=== PATIENT | male | born 1950 | race Caucasian/White ===

== ENCOUNTER 2023-12-19 14:48 | Inpatient (IN) | payer MEDICARE, OTHER ==
[~2023-12-19] VITALS: Ht 175.3 cm; Wt 72.4 kg
[~2023-12-19 14:48] MED LIST: AMLO2.5T2 PO; ASPI-1265 PO; ATOR20TA66 PO; DOCU-148 PO; LOSA-415 PO; NITR0.4T51 SL; PANT40TA54 PO
[2023-12-19 15:37] LABS: BASOPHILS # (AUTO) 0.1 X10'3 (0-0.2); EOSINOPHILS # (AUTO) 0.6 X10'3 (0-0.9); EOSINOPHILS % (AUTO) 9.7 % (0-6); HEMATOCRIT 38.3 % (42.0-52.0); HEMOGLOBIN 13.7 g/dl (14.0-17.9); LYMPHOCYTES % (AUTO) 17.5 % (21-51); MEAN CORPUSCULAR HEMOGLOBIN 33.2 PG (27.0-31.0); MEAN CORPUSCULAR HGB CONC 35.7 g/dL (33.0-36.5); MEAN CORPUSCULAR VOLUME 92.9 FL (78-98); MEAN PLATELET VOLUME 8.9 FL (7.4-10.4); MONOCYTES # (AUTO) 0.6 X10'3 (0-0.9); MONOCYTES % (AUTO) 9.8 % (2-12); NEUTROPHILS # (AUTO) 3.7 X10'3 (1.8-7.7); PLATELET COUNT 251 X10'3 (140-440); RED BLOOD COUNT 4.12 X10'6 (4.70-6.10); RED CELL DISTRIBUTION WIDTH 14.4 % (11.5-14.5); WHITE BLOOD COUNT 5.9 X10'3 (4.5-11.0)
[2023-12-19 15:53] LABS: ALBUMIN 3.3 G/DL (3.4-5.0); ANION GAP 9 (8-16); BLOOD UREA NITROGEN 20 MG/DL (7-18); BUN/CREATININE RATIO 15.4 (10.0-20.0); CHLORIDE 108 MMOL/L (99-107); GLUCOSE 140 MG/DL (70-104); POTASSIUM 3.5 MMOL/L (3.5-5.1); PRO BRAIN NATRIURETIC PEPTIDE 148 PG/ML (0-125); SODIUM 145 MMOL/L (135-145); TOTAL CARBON DIOXIDE 27.6 MMOL/L (24-32); eCRCL 51 ML/MIN; eGFR 54 ML/MIN
[2023-12-19 18:47] LABS: MAGNESIUM 2.2 MG/DL (1.5-2.4)
[2023-12-19] MEDS: normal saline 1000ML IV soln IVB ONE ×2 (19:06→21:30)
[2023-12-19] MEDS: ondansetron/PF 4mg/2ml inj IV ONE (19:07)
[2023-12-19] MEDS: morphine 4 MG/ML inj SYRINge IV ONE (19:07)
[2023-12-19] MEDS: LIDOcaine 2% Viscous 15ml cup MM ONE (19:13)
[2023-12-19] MEDS: mag hydrox/Alum hydrox/simeth 30ml oral suspension PO ONE (19:13)
[2023-12-19] MEDS: metroNIDAZOLE-Flagyl 500mg/NS 100 ML IV ONE (22:05)
[2023-12-19] MEDS ORDERED: magnesium 2GM in 50ml NS 50 ML IV PRN (22:10)
[2023-12-19] MEDS ORDERED: magnesium Cl slow-release 64mg tablet PO PRN (22:10)
[2023-12-19] MEDS ORDERED: morphine 2 MG/ML inj. syringe IV PRN (22:10)
[2023-12-19] MEDS ORDERED: potassium Cl 40MEQ/1/2NS 520ml 520 ML IV PRN (22:10)
[2023-12-19] MEDS ORDERED: acetaminophen 325mg tablet PO PRN (22:10)
[2023-12-19] MEDS ORDERED: mag hydrox/Alum hydrox/simeth 30ml oral suspension PO PRN (22:10)
[2023-12-19] MEDS ORDERED: magnesium hydroxide 30ml (MOM) UD suspension PO PRN (22:10)
[2023-12-19] MEDS ORDERED: magnesium 4gm in 100ml NS 100 ML IV PRN (22:10)
[2023-12-19] MEDS ORDERED: potassium Cl 20 mEq SR tablet PO PRN ×2 (22:10)
[2023-12-19] MEDS ORDERED: LOSA100T58 PO (22:46)
[2023-12-19] MEDS ORDERED: DOCU-225 PO (22:50)
[2023-12-19] MEDS ORDERED: ATOR20TA66 PO (22:50)
[2023-12-19] MEDS ORDERED: ASPI-611 PO (22:50)
[2023-12-19] MEDS ORDERED: NITR0.4T51 SL (22:50)
[2023-12-19] MEDS: normal saline 1000ml 1,000 ML IV SCH (23:33)
[2023-12-19] MEDS: levoFLOXACIN-Levaquin 500mg/D5 100 ML IV ONE (23:33)
[2023-12-20] VITALS (30 sets, daily range): BP systolic 113–145; BP diastolic 52–96; PULSE 57–89; RESP 10–21; TEMP 97–98.3; O2SAT 96–100
[2023-12-20] MEDS ORDERED: nitroGLYCERIN 0.4mg SUBLingual tab SL PRN (01:20)
[2023-12-20 06:03] LABS: BASOPHILS # (AUTO) 0.1 X10'3 (0-0.2); BASOPHILS % (AUTO) 0.9 % (0-1); EOSINOPHILS # (AUTO) 0.6 X10'3 (0-0.9); EOSINOPHILS % (AUTO) 10.3 % (0-6); HEMATOCRIT 37.1 % (42.0-52.0); HEMOGLOBIN 13.1 g/dl (14.0-17.9); LYMPHOCYTES # (AUTO) 1.3 X10'3 (1.1-4.8); LYMPHOCYTES % (AUTO) 23.1 % (21-51); MEAN CORPUSCULAR HEMOGLOBIN 32.9 PG (27.0-31.0); MEAN CORPUSCULAR HGB CONC 35.4 g/dL (33.0-36.5); MEAN CORPUSCULAR VOLUME 92.9 FL (78-98); MEAN PLATELET VOLUME 9.2 FL (7.4-10.4); MONOCYTES # (AUTO) 0.7 X10'3 (0-0.9); MONOCYTES % (AUTO) 11.4 % (2-12); NEUTROPHILS # (AUTO) 3.2 X10'3 (1.8-7.7); NEUTROPHILS % (AUTO) 54.3 % (42-75); PLATELET COUNT 212 X10'3 (140-440); RED BLOOD COUNT 3.99 X10'6 (4.70-6.10); RED CELL DISTRIBUTION WIDTH 14.1 % (11.5-14.5); WHITE BLOOD COUNT 5.8 X10'3 (4.5-11.0)
[2023-12-20 06:11] LABS: APTT 28 SECONDS (22-32); PROTHROMBIN TIME 10.8 SECONDS (9.0-12.0)
[2023-12-20 06:14] LABS: ALANINE AMINOTRANSFERASE 21 U/L (12-78); ALBUMIN 2.8 G/DL (3.4-5.0); ALBUMIN/GLOBULIN RATIO 0.8 (1.1-1.5); ALKALINE PHOSPHATASE 98 IU/L (46-116); ANION GAP 9 (8-16); ASPARTATE AMINO TRANSFERASE 15 U/L (10-37); BILIRUBIN,TOTAL 0.5 MG/DL (0.1-1.0); BLOOD UREA NITROGEN 13 MG/DL (7-18); BUN/CREATININE RATIO 13.7 (10.0-20.0); CALCIUM 8.1 MG/DL (8.5-10.1); CHLORIDE 109 MMOL/L (99-107); CREATININE 0.95 MG/DL (0.60-1.10); GLUCOSE 102 MG/DL (70-104); MAGNESIUM 1.6 MG/DL (1.5-2.4); PHOSPHORUS 3.5 MG/DL (2.3-4.5); POTASSIUM 3.5 MMOL/L (3.5-5.1); SODIUM 147 MMOL/L (135-145); TOTAL CARBON DIOXIDE 28.6 MMOL/L (24-32); TOTAL PROTEIN 6.2 G/DL (6.4-8.2); eCRCL 68 ML/MIN; eGFR 77 ML/MIN
[2023-12-20] MEDS: pantoprazole 40mg Tablet.DR PO SCH (07:52)
[2023-12-20] MEDS: docusate sod 100mg capsule PO SCH (07:52)
[2023-12-20] MEDS: losartan 50mg tablet PO SCH (07:57)
[2023-12-20] MEDS: atorvastatin 20mg tablet PO SCH (08:00)
[2023-12-20] MEDS: amLODIPine 5mg tablet PO SCH (08:00)
[2023-12-20] MEDS: K and/or MAG REPLACEMENT MC SCH (08:00)
[2023-12-20] MEDS: aspirin 81mg, enteric-coated 1 TAB TABLET.DR PO SCH (08:00)
[2023-12-20] MEDS: metroNIDAZOLE-Flagyl 500mg/NS 100 ML IV SCH (08:18)
[2023-12-20] MEDS: ondansetron/PF 4mg/2ml inj IV PRN (10:34)
[2023-12-20] MEDS ORDERED: ondansetron/PF 4mg/2ml inj IV PRN ×2 (11:00→12:30)
[2023-12-20] MEDS ORDERED: labetalol 20mg/4ml (5mg/ml) syringe IV PRN (11:00)
[2023-12-20] MEDS ORDERED: enalaprilat dihydrate 2.5mg/2ml vial IV PRN (11:00)
[2023-12-20] MEDS ORDERED: proCHLORperazine 10 MG/2 ml inj IV PRN ×2 (11:00→12:30)
[2023-12-20] MEDS ORDERED: meperidine/PF 25mg/ml syringe IV PRN ×5 (11:00→12:30)
[2023-12-20] MEDS ORDERED: morphine 4 MG/ML inj SYRINge IV PRN ×2 (11:00→12:30)
[2023-12-20] MEDS ORDERED: INDOCYANINE GREEN 25 MG/10 ML VIAL IV ONE (11:40)
[2023-12-20] MEDS: INDOCYANINE GREEN 25 MG/10 ML VIAL IV ONE (12:08)
[2023-12-20] MEDS: ringers solution, lacted 1,000 ML IV SCH ×2 (12:12→12:30)
[2023-12-20] MEDS ORDERED: morphine 2 MG/ML inj. syringe IV PRN (12:30)
[2023-12-20] MEDS ORDERED: clindamycin-Cleocin 900mg/D5W 50 ML BAG IV ONE (12:42)
[2023-12-20] MEDS ORDERED: fentaNYL/PF 50MCG/1 ML 2ML syringe ONE (12:50)
[2023-12-20] MEDS ORDERED: midazolam 1 mg/ML 2ml injection ONE (12:50)
[2023-12-20] MEDS ORDERED: propofol inj 20 ML IV ONE (12:51)
[2023-12-20] MEDS ORDERED: ondansetron/PF 4mg/2ml inj ONE (12:51)
[2023-12-20] MEDS ORDERED: rocuronium 10mg/ml inj IV ONE (12:51)
[2023-12-20] MEDS ORDERED: meperidine/PF 25mg/ml syringe ONE (12:51)
[2023-12-20] MEDS ORDERED: LIDOcaine 2% (20mg/ml) 5ml vial ONE (12:51)
[2023-12-20] MEDS ORDERED: dexamethasone sod phosphate 4mg/ml inj. ONE (12:51)
[2023-12-20] MEDS: BUPIVAcaine/PF 2.5mg/ml (0.25%) 10ml vial ONE (14:06)
[2023-12-20] MEDS ORDERED: naloxone 0.4 mg/ml inj IV PRN (14:20)
[2023-12-20] MEDS: potassium CL 20mEq in D5-1/2NS 1,000 ML IV SCH (14:20)
[2023-12-20] MEDS: acetaminophen 1,000mg/100ml IV 100 ML IV ONE (14:44)
[2023-12-20] MEDS: meperidine/PF 25mg/ml syringe IV PRN (15:00)
[2023-12-20] MEDS: morphine 2 MG/ML inj. syringe IV PRN (16:30)
[2023-12-20] MEDS: HYDROmorphone inj. 0.5 MG/0.5 ML DISP.SYRIN IV PRN (18:54)
[2023-12-20] MEDS: clindamycin 600mg/D5W 50ml 50 ML IV SCH (19:40)
[2023-12-20] MEDS: levoFLOXACIN-Levaquin 750MG/D5 150 ML IV SCH (21:23)
[2023-12-21] VITALS (8 sets, daily range): BP systolic 123–138; BP diastolic 69–79; PULSE 59–77; RESP 14–18; TEMP 96.8–98.2; O2SAT 97–99
[2023-12-21 06:28] LABS: ALANINE AMINOTRANSFERASE 41 U/L (12-78); ALBUMIN 2.8 G/DL (3.4-5.0); ALBUMIN/GLOBULIN RATIO 0.8 (1.1-1.5); ALKALINE PHOSPHATASE 109 IU/L (46-116); ANION GAP 9 (8-16); ASPARTATE AMINO TRANSFERASE 37 U/L (10-37); BILIRUBIN,TOTAL 0.4 MG/DL (0.1-1.0); BLOOD UREA NITROGEN 12 MG/DL (7-18); BUN/CREATININE RATIO 10.8 (10.0-20.0); CALCIUM 8.7 MG/DL (8.5-10.1); CHLORIDE 106 MMOL/L (99-107); CREATININE 1.11 MG/DL (0.60-1.10); GLUCOSE 182 MG/DL (70-104); MAGNESIUM 1.6 MG/DL (1.5-2.4); PHOSPHORUS 2.9 MG/DL (2.3-4.5); POTASSIUM 3.9 MMOL/L (3.5-5.1); SODIUM 141 MMOL/L (135-145); TOTAL CARBON DIOXIDE 26.4 MMOL/L (24-32); TOTAL PROTEIN 6.5 G/DL (6.4-8.2); eCRCL 58 ML/MIN; eGFR 65 ML/MIN
[2023-12-21 07:08] LABS: BASOPHILS % (AUTO) 0.3 % (0-1); EOSINOPHILS % (AUTO) 0 % (0-6); HEMATOCRIT 39.8 % (42.0-52.0); HEMOGLOBIN 14.2 g/dl (14.0-17.9); LYMPHOCYTES # (AUTO) 0.4 X10'3 (1.1-4.8); MEAN CORPUSCULAR HEMOGLOBIN 32.8 PG (27.0-31.0); MEAN CORPUSCULAR HGB CONC 35.7 g/dL (33.0-36.5); MEAN PLATELET VOLUME 9.2 FL (7.4-10.4); MONOCYTES # (AUTO) 0.5 X10'3 (0-0.9); NEUTROPHILS # (AUTO) 8.9 X10'3 (1.8-7.7); NEUTROPHILS % (AUTO) 90.7 % (42-75); PLATELET COUNT 239 X10'3 (140-440); RED BLOOD COUNT 4.32 X10'6 (4.70-6.10); RED CELL DISTRIBUTION WIDTH 14.6 % (11.5-14.5); WHITE BLOOD COUNT 9.8 X10'3 (4.5-11.0)
[2023-12-21] MEDS ORDERED: amLODIPine 2.5mg tablet PO SCH (08:00)
[2023-12-21] MEDS ORDERED: atorvastatin 20mg tablet PO SCH (08:00)
[2023-12-21] MEDS ORDERED: non-formulary drug (Aspirin (Aspir 81) 1 TAB) PO SCH (08:00)
[2023-12-21] MEDS ORDERED: losartan 25mg tablet PO SCH (08:00)
[2023-12-21] MEDS: HYDROcodone/acetaminophen 10/325mg tab PO PRN (08:18)
[2023-12-21] MEDS: metroNIDAZOLE-Flagyl 500mg/NS 100 ML IV SCH (17:23)
[2023-12-21] MEDS: enoxaparin 40mg/0.4ml syringe SUBCUT SCH (19:58)
[2023-12-22 05:40] LABS: BASOPHILS # (AUTO) 0.1 X10'3 (0-0.2); BASOPHILS % (AUTO) 0.7 % (0-1); EOSINOPHILS # (AUTO) 0.1 X10'3 (0-0.9); EOSINOPHILS % (AUTO) 1.3 % (0-6); HEMATOCRIT 37.6 % (42.0-52.0); HEMOGLOBIN 13.3 g/dl (14.0-17.9); LYMPHOCYTES # (AUTO) 1.1 X10'3 (1.1-4.8); LYMPHOCYTES % (AUTO) 13.6 % (21-51); MEAN CORPUSCULAR HGB CONC 35.5 g/dL (33.0-36.5); MEAN CORPUSCULAR VOLUME 92.9 FL (78-98); MEAN PLATELET VOLUME 9.2 FL (7.4-10.4); MONOCYTES # (AUTO) 0.7 X10'3 (0-0.9); NEUTROPHILS # (AUTO) 6.4 X10'3 (1.8-7.7); NEUTROPHILS % (AUTO) 76.4 % (42-75); PLATELET COUNT 232 X10'3 (140-440); RED BLOOD COUNT 4.05 X10'6 (4.70-6.10); RED CELL DISTRIBUTION WIDTH 14.5 % (11.5-14.5); WHITE BLOOD COUNT 8.3 X10'3 (4.5-11.0)
[2023-12-22 05:54] LABS: ALANINE AMINOTRANSFERASE 55 U/L (12-78); ALBUMIN 2.5 G/DL (3.4-5.0); ALBUMIN/GLOBULIN RATIO 0.8 (1.1-1.5); ALKALINE PHOSPHATASE 120 IU/L (46-116); ANION GAP 8 (8-16); ASPARTATE AMINO TRANSFERASE 41 U/L (10-37); BILIRUBIN,TOTAL 0.3 MG/DL (0.1-1.0); BLOOD UREA NITROGEN 12 MG/DL (7-18); CALCIUM 8.2 MG/DL (8.5-10.1); CHLORIDE 108 MMOL/L (99-107); CREATININE 1.09 MG/DL (0.60-1.10); GLUCOSE 128 MG/DL (70-104); MAGNESIUM 1.8 MG/DL (1.5-2.4); PHOSPHORUS 2.9 MG/DL (2.3-4.5); POTASSIUM 3.7 MMOL/L (3.5-5.1); SODIUM 142 MMOL/L (135-145); TOTAL CARBON DIOXIDE 26.2 MMOL/L (24-32); TOTAL PROTEIN 5.7 G/DL (6.4-8.2); eCRCL 59 ML/MIN; eGFR 66 ML/MIN
[2023-12-22 06:00] VITALS: BP 135/74; PULSE 67; RESP 16; TEMP 97.7; O2SAT 98
[2023-12-22 07:50] VITALS: RESP 16; O2SAT 98
[2023-12-22 10:00] VITALS: BP 135/74; PULSE 63; RESP 17; TEMP 97.1; O2SAT 99
[2023-12-22] MEDS: metoclopramide 5 mg/ml inj IV SCH (11:47)
[2023-12-22 18:00] VITALS: BP 126/74; PULSE 70; RESP 16; TEMP 97.3; O2SAT 96
[2023-12-22] MEDS: magnesium hydroxide 30ml (MOM) UD suspension PO SCH (20:46)
[2023-12-22 22:00] VITALS: BP 125/69; PULSE 68; RESP 14; TEMP 98.3; O2SAT 97
[2023-12-23] MEDS: ondansetron/PF 4mg/2ml inj IV PRN (03:38)
[2023-12-23 04:01] VITALS: BP 134/77; PULSE 67; RESP 16; TEMP 98; O2SAT 95
[2023-12-23 06:00] VITALS: BP 144/80; PULSE 72; RESP 16; TEMP 98.4; O2SAT 98
[2023-12-23 06:28] LABS: BASOPHILS # (AUTO) 0.1 X10'3 (0-0.2); BASOPHILS % (AUTO) 0.7 % (0-1); EOSINOPHILS # (AUTO) 0.2 X10'3 (0-0.9); EOSINOPHILS % (AUTO) 2.6 % (0-6); HEMATOCRIT 37.9 % (42.0-52.0); HEMOGLOBIN 13.5 g/dl (14.0-17.9); LYMPHOCYTES # (AUTO) 1.1 X10'3 (1.1-4.8); LYMPHOCYTES % (AUTO) 14.6 % (21-51); MEAN CORPUSCULAR HEMOGLOBIN 33.1 PG (27.0-31.0); MEAN CORPUSCULAR HGB CONC 35.6 g/dL (33.0-36.5); MEAN CORPUSCULAR VOLUME 93.1 FL (78-98); MEAN PLATELET VOLUME 8.9 FL (7.4-10.4); MONOCYTES # (AUTO) 0.7 X10'3 (0-0.9); MONOCYTES % (AUTO) 9.3 % (2-12); NEUTROPHILS # (AUTO) 5.3 X10'3 (1.8-7.7); NEUTROPHILS % (AUTO) 72.8 % (42-75); PLATELET COUNT 222 X10'3 (140-440); RED BLOOD COUNT 4.07 X10'6 (4.70-6.10); RED CELL DISTRIBUTION WIDTH 14.4 % (11.5-14.5); WHITE BLOOD COUNT 7.3 X10'3 (4.5-11.0)
[2023-12-23 06:49] LABS: ALANINE AMINOTRANSFERASE 54 U/L (12-78); ALBUMIN 2.5 G/DL (3.4-5.0); ALBUMIN/GLOBULIN RATIO 0.8 (1.1-1.5); ALKALINE PHOSPHATASE 115 IU/L (46-116); ANION GAP 8 (8-16); ASPARTATE AMINO TRANSFERASE 38 U/L (10-37); BILIRUBIN,TOTAL 0.4 MG/DL (0.1-1.0); BLOOD UREA NITROGEN 14 MG/DL (7-18); BUN/CREATININE RATIO 11.3 (10.0-20.0); CALCIUM 8.2 MG/DL (8.5-10.1); CHLORIDE 109 MMOL/L (99-107); CREATININE 1.24 MG/DL (0.60-1.10); GLUCOSE 135 MG/DL (70-104); MAGNESIUM 2.1 MG/DL (1.5-2.4); PHOSPHORUS 3.3 MG/DL (2.3-4.5); POTASSIUM 3.7 MMOL/L (3.5-5.1); SODIUM 143 MMOL/L (135-145); TOTAL PROTEIN 5.5 G/DL (6.4-8.2); eCRCL 52 ML/MIN; eGFR 57 ML/MIN
[2023-12-23 10:00] VITALS: BP 138/81; PULSE 81; RESP 16; TEMP 97.7; O2SAT 97
[2023-12-23] MEDS: methylnaltrexone br 12mg/0.6ml inj***SubQ only SQ ONE (12:10)
[2023-12-23] MEDS ORDERED: HYDR-3965 PO (14:16)
== END 2023-12-23 15:31 | disposition home or self-care (01) | DRG 418 ==
LOC: ER 14:49 → ED HOLD 22:12 → SUR 3N 12-20 00:10
PROVIDERS: ADMIT Internal Medicine Pulmonary Disease; ATTEND Internal Medicine
PROC: 0FT44ZZ Resection of Gallbladder, Percutaneous Endoscopic Approach (ICD-10-PCS; 2023-12-20)
PROC: 0DNW4ZZ Release Peritoneum, Percutaneous Endoscopic Approach (ICD-10-PCS; 2023-12-20)
PROC: 8E0W4CZ Robotic Assisted Procedure of Trunk Region, Percutaneous Endoscopic Approach (ICD-10-PCS; principal; 2023-12-20 12:42)
DX: K80.10 Calculus of gallbladder with chronic cholecystitis without obstruction (principal); N17.9 Acute kidney failure, unspecified; I25.10 Atherosclerotic heart disease of native coronary artery without angina pectoris; K82.8 Other specified diseases of gallbladder; K66.0 Peritoneal adhesions (postprocedural) (postinfection); E86.1 Hypovolemia; E86.0 Dehydration; I10 Essential (primary) hypertension; Z88.0 Allergy status to penicillin; Z88.2 Allergy status to sulfonamides; Z86.73 Personal history of transient ischemic attack (TIA), and cerebral infarction without residual deficits; Z79.82 Long term (current) use of aspirin; Z79.899 Other long term (current) drug therapy; Z85.46 Personal history of malignant neoplasm of prostate; Z85.820 Personal history of malignant melanoma of skin; Z92.3 Personal history of irradiation; Z87.11 Personal history of peptic ulcer disease
CPT/HCPCS: 36415; 71045; 74176; 76700; 80048; 80053; 82150; 82948; 83036; 83690; 83735; 83880; 84100; 84484; 85025; 85610; 85730; 87081; 93005; 96361; 96365; 99285; A4215; A4615; A4618; A6212; A7000; G0378; J0131; J1100; J1170; J1650; J1956; J2175; J2250; J2270; J2405; J2704; J2710; J2765; J3010; J3480; J3490; J7030; J7120